=== PATIENT | female | born 1960 | race Caucasian/White ===

== ENCOUNTER 2019-01-12 14:20 | Emergency (ER) | payer OTHER ==
[~2019-01-12] VITALS: Ht 170.2 cm; Wt 62.6 kg
== END 2019-01-12 20:36 | disposition home or self-care (01) ==
LOC: ER 14:20
DX: S91.341A Puncture wound with foreign body, right foot, initial encounter (principal); W26.8XXA Contact with other sharp object(s), not elsewhere classified, initial encounter; Y93.89 Activity, other specified; Y92.830 Public park as the place of occurrence of the external cause; Y99.8 Other external cause status

== ENCOUNTER 2021-08-13 14:37 | Emergency (ER) | payer OTHER ==
[~2021-08-13] VITALS: Ht 170.2 cm; Wt 57.6 kg
== END 2021-08-13 16:11 | disposition home or self-care (01) ==
LOC: ER 14:37
DX: K29.70 Gastritis, unspecified, without bleeding (principal); K20.90 Esophagitis, unspecified without bleeding; Z88.6 Allergy status to analgesic agent